=== PATIENT | female | born 1990 | race American Indian/Alaskan Native ===

== ENCOUNTER 2017-12-11 09:06 | Observation (INO) | payer BC ==
[2017-12-11] MEDS ORDERED: Sodium Chloride 0.9% 1,000 ML IV ONE ×2 (09:34→11:47)
--- NOTE | 2017-12-11 09:40 | C.PDOC ---
History Of Present Illness 27 y/o female presents to ED with intractable vomiting for 3 days. Patient states 3 days ago was seen at [facility] [place] and states "My labs were mixed up with someone else's because they said I was and I have not had sex for 1 year". Patient reports at [facility] [place] she was given IV fluids, Reglan and morphine but symptoms have not improved which prompted visit to ED today. Patient admits to smoking Marijuana regularly and denies fever, chills, back pain or any other complaints at this time. Time Seen by Provider: 12/11/17 09:07 Chief Complaint (Nursing): Abdominal Pain History Per: Patient History/Exam Limitations: no limitations Onset/Duration Of Symptoms: Days Current Symptoms Are (Timing): Still Present Associated Symptoms: Nausea, Vomiting Past Medical History Reviewed: Historical Data, Nursing Documentation, Vital Signs Vital Signs: Last Vital Signs Temp 99.0 F 12/11/17 15:28 Pulse 53 L 12/11/17 15:28 Resp 18 12/11/17 15:28 BP 110/66 12/11/17 15:28 Pulse Ox 98 12/11/17 15:28 - Medical History PMH: Asthma, Migraine Surgical History: No Surg Hx Family History: States: No Known Family Hx - Social History Hx Alcohol Use: No Hx Substance Use: Yes - Immunization History Hx Tetanus Toxoid Vaccination: No Hx Influenza Vaccination: No Hx Pneumococcal Vaccination: No Review Of Systems Constitutional: Negative for: Fever, Chills Gastrointestinal: Positive for: Vomiting, Abdominal Pain Genitourinary: Negative for: Dysuria, Vaginal Discharge, Vaginal Bleeding Musculoskeletal: Negative for: Back Pain Skin: Negative for: Rash Neurological: Negative for: Weakness, Numbness Physical Exam - Physical Exam Appears: Non-toxic, No Acute Distress, Other (Actively vomiting) Skin: Warm, Dry, No Rash Head: Atraumatic, Normacephalic Oral Mucosa: Moist Neck: Normal ROM, Supple Cardiovascular: Rhythm Regular Respiratory: Normal Breath Sounds, No Rales, No Rhonchi, No Wheezing Gastrointestinal/Abdominal: Soft, Tenderness (Suprapubic ), No Guarding, No Rebound Back: No CVA Tenderness Extremity: Normal ROM, Capillary Refill (<2 seconds) Neurological/Psych: Oriented x3 ED Course And Treatment - Laboratory Results Result Diagrams: 12/11/17 09:56 12/11/17 09:56 Lab Interpretation: Normal Urine POC: Negative O2 Sat by Pulse Oximetry: 98 (RA) Pulse Ox Interpretation: Normal Progress Note: IV fluids, Reglan, Beta HCG ordered,. Treated with toradol and additional IVF NSS. On re-evaluation continues to vomit, Treated with ativan 1 mg IV Reassessment Condition: Improved - Physician Consult Information Physician Contacted: Elba Membreno Outcome Of Conversation: admit Medical Decision Making Medical Decision Making: Case discussed with Dr Membreno who knows patient well and patoient has been worked up multiple times with normal findings Disposition Discussed With Dr.: Elba Membreno Doctor Will See Patient In The: Hospital Counseled Patient/Family Regarding: Studies Performed, Diagnosis - Disposition Disposition: HOSPITALIZED Disposition Time: 16:00 Condition: STABLE - Clinical Impression Clinical Impression: Intractable nausea and vomiting, Intractable vomiting - PA / MASTER GLAZIER / Resident Statement MD/DO has reviewed & agrees with the documentation as recorded. - Scribe Statement The provider has reviewed the documentation as recorded by the Slyibnaty Dawson All medical record entries made by the Tommie were at my direction and personally dictated by me. I have reviewed the chart and agree that the record accurately reflects my personal performance of the history, physical exam, medical decision making, and the department course for this patient. I have also personally directed, reviewed, and agree with the discharge instructions and disposition. Decision To Admit - Pt Status Changed To: Hospital Disposition Of: Observation - . Bed Request Type: Regular Patient Diagnosis: Intractable nausea and vomiting
[2017-12-11] MEDS ORDERED: Sodium Chloride 0.9% 1,000 ML ONE (09:42)
[2017-12-11 10:00] LABS: BASO % 0.3 % (0.0-2.0); EOS % 0.2 % (0.0-4.0); LYMPH # 0.6 K/uL (1.0-4.3); LYMPH % 16.1 % (20.0-40.0); MEAN CELL VOLUME 86.4 fL (81.0-99.0); MEAN CORPUSCULAR HEMOGLOBIN 29.3 pg (27.0-31.0); MEAN CORPUSCULAR HGB CONC 33.9 g/dL (33.0-37.0); MEAN PLATELET VOLUME 8.5 fL (7.2-11.7); MONO # 0.8 K/uL (0.0-0.8); MONO % 22.4 % (0.0-10.0); NEUT # 2.2 K/uL (1.8-7.0); NRBC % 0.1 % (0.0-2.0); RBC 4.75 Mil/uL (3.80-5.20); RED CELL DISTRIBUTION WIDTH 12.7 % (11.5-14.5)
[2017-12-11 10:02] LABS: HEMOGLOBIN 13.9 g/dL (11.0-16.0); PLATELET COUNT 177 K/uL (130-400); WHITE BLOOD COUNT 3.6 K/uL (4.8-10.8)
[2017-12-11 10:15] LABS: ALB/GLOB RATIO 1.2 (1.0-2.1); ALBUMIN 4.3 g/dL (3.5-5.0); CALCIUM 8.8 mg/dl (8.6-10.4); GFR AFRICAN-AMERICAN > 60; GFR NON-AFRICAN AMERICAN > 60; LIPASE 206 U/L (23-300)
[2017-12-11 10:17] LABS: SQUAMOUS EPITHIAL 1 /hpf (0-5); URINE BACTERIA RARE (<OCC); URINE BILIRUBIN NEGATIVE (NEGATIVE); URINE BLOOD 1+ (NEGATIVE); URINE CLARITY Clear (Clear); URINE COLOR Yellow (YELLOW); URINE GLUCOSE (UA) NORMAL (Normal); URINE LEUKOCYTE ESTERASE NEG Leu/uL (Negative); URINE NITRATE NEGATIVE (NEGATIVE); URINE PROTEIN 2+ mg/dL (NEGATIVE)
[2017-12-11 10:18] LABS: ALT/SGPT 41 U/L (9-52); AST/SGOT 55 U/L (14-36); BLOOD UREA NITROGEN 11 mg/dL (7-17)
[2017-12-11 10:32] LABS: LYMPHOCYTE 20 % (20-40); MONOCYTE 18 % (0-10); NEUTROPHIL 62 % (50-75); PLATELET ESTIMATE NORMAL (NORMAL); TOTAL CELLS COUNTED 100
[2017-12-11 10:33] LABS: OVALOCYTES SLIGHT
[2017-12-11] MEDS ORDERED: Potassium Chloride 20 mEq/15 ml LIQ UD PO STA (11:47)
[2017-12-11] MEDS ORDERED: Potassium Chloride 20 mEq ER Tab PO ONE (12:32)
[2017-12-11] MEDS ORDERED: Dextrose 5%-0.225% NS 1,000 ML IV ONE (17:29)
[2017-12-11] MEDS: Dextrose 5%/0.45% NS 1,000 ML IV SCH (17:32)
[2017-12-12] MEDS: Dextrose 5%/0.45% NS 1,000 ML IV SCH ×3 (00:47→21:54)
[2017-12-12] MEDS ORDERED: Albuterol 0.083% Inhal Sol (2.5 mg/3 mL) UD INH PRN (07:34)
--- NOTE | 2017-12-12 07:37 | CP.PCM.PN ---
Subjective - Date & Time of Evaluation Date of Evaluation: 12/12/17 Time of Evaluation: 07:00 - Subjective Subjective: PGY 2 medicine progress note for Dr. Membreno: Patient seen and examined at bedside this morning. She sates that she is constantly nauseous and vomiting about 12 times a day with spec of blood in the vomit. Patient is also complaining of 6/10 generalized abdominal pain and is requesting Dilaudid. Patient stated she was at [facility] on Saturday for this issue but left because she was upset they were giving her information about another patient and said she was . Patient has been admitted for the same complaints to other hospitals a few times in the last couple years. She admits to chills and some shortness of breath, but denies chest pain, palpations, headh aches, changes in vision, numbness/tingling. Her last BM was yesterday. Patient admits to recent marijuana use. She states she has been very stressed at home and at work recently. Objective - Vital Signs/Intake and Output Vital Signs (last 24 hours): Temp Pulse Resp BP Pulse Ox 97.6 F 71 20 104/69 99 12/12/17 00:00 12/12/17 00:00 12/12/17 00:00 12/12/17 00:00 12/12/17 03:30 Intake and Output: 12/12/17 12/12/17 06:59 18:59 Intake Total 800 Balance 800 - Medications Medications: Current Medications Hydromorphone HCl (Dilaudid) 1 mg IVP Q4H PRN PRN Reason: Pain, severe (8-10) Last Admin: 12/12/17 01:56 Dose: 1 mg Dextrose/Sodium Chloride (Dextrose 5%/0.45% Ns 1000 Ml) 1,000 mls @ 100 mls/hr IV .Q10H CLAUDIA Last Admin: 12/12/17 00:47 Dose: 100 mls/hr Ondansetron HCl (Zofran Inj) 4 mg IVP Q6 PRN PRN Reason: Nausea/Vomiting Pneumococcal Polyvalent Vaccine (Pneumovax 23 Vaccine) 0.5 ml IM .ONCE ONE Stop: 12/12/17 10:01 - Labs Labs: 12/11/17 09:56 12/11/17 09:56 - Constitutional Appears: Non-toxic, No Acute Distress - Head Exam Head Exam: ATRAUMATIC, NORMAL INSPECTION - Eye Exam Eye Exam: EOMI, PERRL Pupil Exam: NORMAL ACCOMODATION - ENT Exam ENT Exam: Mucous Membranes Moist - Respiratory Exam Respiratory Exam: Clear to Ausculation Bilateral, NORMAL BREATHING PATTERN. absent: Accessory Muscle Use, Decreased Breath Sounds, Rales, Wheezes, Respiratory Distress - Cardiovascular Exam Cardiovascular Exam: REGULAR RHYTHM, +S1, +S2 - GI/Abdominal Exam GI & Abdominal Exam: Soft, Tenderness, Normal Bowel Sounds. absent: Distended, Firm, Guarding - Extremities Exam Extremities Exam: Normal Inspection. absent: Calf Tenderness, Pedal Edema - Back Exam Back Exam: NORMAL INSPECTION. absent: CVA tenderness (L), CVA tenderness (R), paraspinal tenderness - Neurological Exam Neurological Exam: Alert, Awake, CN II-XII Intact, Normal Gait, Oriented x3 Neuro motor strength exam: Left Upper Extremity: 5, Right Upper Extremity: 5, Left Lower Extremity: 5, Right Lower Extremity: 5 - Psychiatric Exam Psychiatric exam: Normal Affect, Normal Mood - Skin Skin Exam: Dry, Intact, Normal Color, Warm Assessment and Plan - Assessment and Plan (Free Text) Assessment: Intractable Nausea and Vomiting clear liquids D5, 1/2 NS at 100cc/hour Reglan 5mg IVP Q6 claudia Carafate 1grm PO ACBD CLAUDIA Zofran prn N/V Dilaudid 0.5mg IVP Q4 prn pain BHCg negative Patient had been admitted many times in the past for this same complaint with negative workup Dr. Gillis consulted, help appreciated s/p endocsopy 12/12: LA grade B reflux esophagitis, small haitus hernia, acute gastritis (f/u biopsy) f/u am labs, lipase, amylase Hypokalemia K 3.4 kCL 20meq IVPB f/u am labs Asthma Patient wheezing today SOlumedrol given 125 mg IVP then will continue 40mg IVP BID Continue Advair (on symbicort at home) Albuterol treatments Q4 claudia Hx. Migraine Not complaining of headaches at this time Hematuria f/u repeat UA, urine culture if persistent then will need urine cytology Anxiety Patient to follow up outpatient with psychiatry/therapy Prophylactic Measures SCDs Protonix 40mg IVP daily liquid diet Jami Shepherd PGY [address] Membreno
[2017-12-12 07:58] LABS: LYMPH # 1.1 K/uL (1.0-4.3); MONO # 0.5 K/uL (0.0-0.8); NEUT # 1.6 K/uL (1.8-7.0); NRBC % 0.2 % (0.0-2.0); WHITE BLOOD COUNT 3.2 K/uL (4.8-10.8)
[2017-12-12 08:08] LABS: BASO % 0.3 % (0.0-2.0); EOS % 0.1 % (0.0-4.0); LYMPH % 34.4 % (20.0-40.0); MEAN CELL VOLUME 85.9 fL (81.0-99.0); MEAN CORPUSCULAR HEMOGLOBIN 30.4 pg (27.0-31.0); MEAN CORPUSCULAR HGB CONC 35.4 g/dL (33.0-37.0); MEAN PLATELET VOLUME 8.7 fL (7.2-11.7); MONO % 15.2 % (0.0-10.0); RBC 3.92 Mil/uL (3.80-5.20); RED CELL DISTRIBUTION WIDTH 12.4 % (11.5-14.5)
[2017-12-12 08:12] LABS: HEMOGLOBIN 11.9 g/dL (11.0-16.0)
[2017-12-12 08:39] LABS: ALBUMIN 2.9 g/dL (3.5-5.0); ALT/SGPT 44 U/L (9-52); AST/SGOT 44 U/L (14-36); BLOOD UREA NITROGEN 7 mg/dL (7-17); CALCIUM 7.8 mg/dl (8.6-10.4); GFR AFRICAN-AMERICAN > 60; GFR NON-AFRICAN AMERICAN > 60; MAGNESIUM 1.8 mg/dL (1.6-2.3)
[2017-12-12] MEDS ORDERED: Potassium Chloride 20 mEq ER Tab PO ONE (09:00)
[2017-12-12] MEDS ORDERED: Pneumococcal 23-Valent Vaccine IM ONE (10:00)
[2017-12-12] MEDS ORDERED: Propofol 10 mg/ml Inj (20 ML) ONE ×2 (11:47→11:57)
[2017-12-12] MEDS ORDERED: Lidocaine Hydrochloride 5 ML INJ ONE ×2 (11:47→12:07)
[2017-12-12] MEDS ORDERED: Lactated Ringer's 1,000 ML IV ONE (11:50)
[2017-12-12 13:00] VITALS: RESP 20
[2017-12-12 14:10] LABS: AMYLASE 80 U/L (30-110); LIPASE 190 U/L (23-300)
[2017-12-12 14:11] LABS: INR 1.1; PROTHROMBIN TIME 12.4 SECONDS (9.7-12.2)
[2017-12-12] MEDS: Albuterol 0.083% Inhal Sol (2.5 mg/3 mL) UD INH SCH ×2 (16:58→19:48)
--- NOTE | 2017-12-12 19:15 | US ---
EXAM: US Abdomen Complete EXAM DATE/TIME: Exam ordered 12/12/2017 12:42 PM CLINICAL HISTORY: 27 years old, female; Signs and symptoms; Nausea and vomiting; Additional info: N/v TECHNIQUE: Real-time ultrasound of the abdomen (complete) with image documentation. COMPARISON: No relevant prior studies available. FINDINGS: Liver: Liver measures 15.3 cm in craniocaudal span. There is normal blood flow direction in the main portal vein. No intrahepatic bile duct dilation. Gallbladder: Unremarkable. No gallstones. Common bile duct: Common bile duct measures 3 mm. No stones. No dilation. Pancreas: Unremarkable as visualized. Kidneys: The right kidney measures 10.4 x 4.4 x 5.3 cm. The left kidney measures 10.1 x 5.1 x 5.1 cm. No stones. No hydronephrosis. Spleen: The spleen measures 8.7 cm in craniocaudal span. Aorta: Unremarkable. No aneurysm. Inferior vena cava: Unremarkable. Free fluid: A trace amount of free fluid is noted in the hepato- cholecystic space. A trace amount of ascites is seen in the hepato- renal space. A trace amount of free fluid surrounds the spleen. No ascites is seen in the right lower quadrant or the left lower quadrant. IMPRESSION: 1. A trace amount of ascites is noted surrounding the gallbladder, spleen and in the hepatorenal space.
[2017-12-12] MEDS: Fluticasone-Salmeterol 250-50mcg Diskus INH SCH (19:48)
[2017-12-12 22:44] LABS: SQUAMOUS EPITHIAL 1 /hpf (0-5); URINE BILIRUBIN NEGATIVE (NEGATIVE); URINE BLOOD NEGATIVE (NEGATIVE); URINE CLARITY Clear (Clear); URINE COLOR Straw (YELLOW); URINE GLUCOSE (UA) 2+ mg/dL (Normal); URINE LEUKOCYTE ESTERASE NEG Leu/uL (Negative); URINE NITRATE NEGATIVE (NEGATIVE); URINE PROTEIN NEGATIVE (NEGATIVE); URINE UROBILINOGEN NORMAL mg/dL (0.2-1.0)
[2017-12-13] MEDS: Albuterol 0.083% Inhal Sol (2.5 mg/3 mL) UD INH SCH ×4 (03:20→12:16)
[2017-12-13] MEDS: Dextrose 5%/0.45% NS 1,000 ML IV SCH ×2 (06:06→08:24)
--- NOTE | 2017-12-13 07:34 | CP.PCM.PN ---
Subjective - Date & Time of Evaluation Date of Evaluation: 12/13/17 Time of Evaluation: 07:29 - Subjective Subjective: PGY-[address] Membreno's service: Pt seen and examined at bedside. Nursing reports no acute events overnight. Pt reports abdominal pain is greatly improved this AM. She admits intermittent nausea but was able to tolerate liquid breakfast and soft diet for lunch. She denies diarrhea, constipation. Objective - Vital Signs/Intake and Output Vital Signs (last 24 hours): Temp Pulse Resp BP Pulse Ox 98.7 F 69 20 105/67 100 12/13/17 00:00 12/13/17 00:00 12/13/17 00:00 12/13/17 00:00 12/13/17 00:00 Intake and Output: 12/13/17 12/13/17 06:59 18:59 Intake Total 1840 Balance 1840 - Medications Medications: Current Medications Albuterol Sulfate (Albuterol 0.083% Inhal Mayda (2.5 Mg/3 Ml) Ud) 2.5 mg INH RQ4 [facility] Last Admin: 12/13/17 03:20 Dose: Not Given Hydromorphone HCl (Dilaudid) 0.5 mg IVP Q4H PRN PRN Reason: Pain, severe (8-10) Last Admin: 12/13/17 02:38 Dose: 0.5 mg Dextrose/Sodium Chloride (Dextrose 5%/0.45% Ns 1000 Ml) 1,000 mls @ 100 mls/hr IV .Q10H [facility] Last Admin: 12/13/17 06:06 Dose: 100 mls/hr Methylprednisolone (Solu-Medrol) 40 mg IVP BID [facility] Metoclopramide HCl (Reglan) 5 mg IVP Q6 [facility] Last Admin: 12/13/17 06:07 Dose: Not Given Ondansetron HCl (Zofran Inj) 4 mg IVP Q6 PRN PRN Reason: Nausea/Vomiting Last Admin: 12/12/17 21:13 Dose: 4 mg Pantoprazole Sodium (Protonix Inj) 40 mg IVP DAILY [facility] Last Admin: 12/12/17 09:26 Dose: 40 mg Fluticasone/Salmeterol (Advair Diskus 250/50) 1 puff INH RQ12 [facility] Last Admin: 12/12/17 19:48 Dose: Not Given Sucralfate (Carafate Tab) 1 gm PO ACBD [facility] Last Admin: 12/12/17 16:59 Dose: 1 gm - Labs Labs: 12/12/17 07:42 12/12/17 07:42 PT 12.4 SECONDS (9.7-12.2) H 12/12/17 13:50 INR 1.1 12/12/17 13:50 APTT 29 SECONDS (21-34) 12/12/17 13:50 - Constitutional Appears: Non-toxic, No Acute Distress - Eye Exam Eye Exam: EOMI, Normal appearance. absent: Scleral icterus - ENT Exam ENT Exam: Mucous Membranes Moist - Neck Exam Neck Exam: Full ROM - Respiratory Exam Respiratory Exam: Clear to Ausculation Bilateral, NORMAL BREATHING PATTERN. absent: Rales, Rhonchi, Wheezes - Cardiovascular Exam Cardiovascular Exam: REGULAR RHYTHM, +S1, +S2 - GI/Abdominal Exam GI & Abdominal Exam: Soft, Normal Bowel Sounds. absent: Tenderness - Extremities Exam Extremities Exam: Normal Inspection. absent: Pedal Edema - Back Exam Back Exam: absent: CVA tenderness (L), CVA tenderness (R) - Neurological Exam Neurological Exam: Alert, Awake, Oriented x3 - Psychiatric Exam Psychiatric exam: Normal Affect, Normal Mood - Skin Skin Exam: Dry, Normal Color, Warm Assessment and Plan - Assessment and Plan (Free Text) Plan: Intractable Nausea and Vomiting Tolerating soft diet D5, 1/2 NS at 100cc/hour Reglan 5mg IVP Q6 claudia Carafate 1grm PO ACBD CLAUDIA Zofran prn N/V Dilaudid 0.5mg IVP Q4 prn pain BHCg negative Patient had been admitted many times in the past for this same complaint with negative workup Dr. Gillis consulted, help appreciated s/p endocsopy 12/12: LA grade B reflux esophagitis, small haitus hernia, acute gastritis (f/u biopsy) US Abdomen (12/12/17): Trace ascites around GB, spleen, hepatorenal space. Hypokalemia K 3.2 on am labs; repleted kCL 20meq IVPB + kdur 40 f/u am labs Asthma Patient wheezing today Solumedrol given 125 mg IVP then will continue 40mg IVP BID Continue Advair (on symbicort at home) Albuterol treatments Q4 claudia Hx. Migraine Not complaining of headaches at this time Hematuria resolved Anxiety Patient to follow up outpatient with psychiatry/therapy Prophylactic Measures SCDs Protonix 40mg IVP daily Soft diet Disposition: Pt tolerating diet. Will be discharged. Pt will follow up with Dr. Membreno this week. Jami Shepherd PGY [address] Membreno
[2017-12-13 07:51] VITALS: PULSE 64
[2017-12-13 08:29] LABS: BASO % 0.1 % (0.0-2.0); HEMOGLOBIN 12.9 g/dL (11.0-16.0); LYMPH % 23.3 % (20.0-40.0); MEAN CELL VOLUME 84.6 fL (81.0-99.0); MEAN CORPUSCULAR HEMOGLOBIN 29.9 pg (27.0-31.0); MEAN CORPUSCULAR HGB CONC 35.4 g/dL (33.0-37.0); MEAN PLATELET VOLUME 8.8 fL (7.2-11.7); MONO # 0.8 K/uL (0.0-0.8); MONO % 17.6 % (0.0-10.0); NEUT # 2.6 K/uL (1.8-7.0); NRBC % 0.2 % (0.0-2.0); RBC 4.32 Mil/uL (3.80-5.20); RED CELL DISTRIBUTION WIDTH 12.5 % (11.5-14.5); WHITE BLOOD COUNT 4.4 K/uL (4.8-10.8)
[2017-12-13 08:56] LABS: ALB/GLOB RATIO 1.2 (1.0-2.1); ALBUMIN 3.3 g/dL (3.5-5.0); ALT/SGPT 41 U/L (9-52); AST/SGOT 49 U/L (14-36); BLOOD UREA NITROGEN 4 mg/dL (7-17); CALCIUM 8.5 mg/dl (8.6-10.4); GFR AFRICAN-AMERICAN > 60; GFR NON-AFRICAN AMERICAN > 60; MAGNESIUM 1.6 mg/dL (1.6-2.3)
[2017-12-13 09:10] LABS: FERRITIN 67.3 ng/mL
[2017-12-13] MEDS: Fluticasone-Salmeterol 250-50mcg Diskus INH SCH (09:13)
[2017-12-13] MEDS ORDERED: MethylPREDNISolone 40 mg Vial IVP SCH (10:00)
--- NOTE | 2017-12-13 11:51 | PN ---
DATE: LOCATION: [facility], bed A. SUBJECTIVE: This is a 27-year-old female seen and examined in rounds with much less abdominal pain, tolerating liquid intake well. No hematemesis. No vomiting, but mild nausea and dyspepsia. Abdominal ultrasound report is seen. The entire chart is reviewed including, but not limited to most recent lab and radiology study results, current and previous medication list, current and previous medical events. Case discussed at length with the patient herself as well as staff on the floor, in the presence of the patient's mother. Today's lab showed normal CBC, but white blood cells is still low at 4.4 with low potassium 3.2 and low BUN 4, low creatinine of 0.6 with mildly elevated blood glucose level 108 but low calcium 8.5. AST slightly elevated to 49 with low total protein of 6.2, low albumin 3.3. PHYSICAL EXAMINATION: GENERAL: A 27-year-old female, appeared to be awake, alert, oriented. Complaining of intermittent periods of abdominal pain but less than before. VITAL SIGNS: The patient is afebrile with pulse of 66, respiratory rate 18 to 20, blood pressure 110/64. HEENT: Showed mildly dry, pale mucous membrane. Nonicteric sclerae. LUNGS: Clear. Breathing sounds are present bilaterally. HEART: Positive S1 and S2. ABDOMEN: Soft. Bowel sounds are present. No mass or organomegaly. No rebound tenderness or guarding. EXTREMITIES: Without edema, clubbing, or cyanosis. NEUROLOGIC: No reported new neurological deficits, sensory or motor. IMPRESSION: 1. Re-exacerbation of peptic ulcer disease with acute gastritis and distal esophagitis. 2. Anemia, most likely secondary to above. 3. Abnormal ultrasound of the abdomen and pelvis with mild amount of ascites. 4. Known history of migraine headache with bronchial asthma. SUGGESTIONS: 1. Agree with your plan. 2. Advance diet. 3. Follow up pathology report. Shivam Colvin MD
--- NOTE | 2017-12-13 14:16 | CON ---
DATE: 12/11/[address] Shivam Colvin to Dr. Elba Membreno. I was called for a GI consultation by the admitting medical team. Patient is seen and fully examined on 12/11/2017 as requested by the staff in the floor. The entire chart was reviewed including but not limited to most recent lab and radiology study results, current and the previous medication list, current and the previous medical events, allergy to medication list as well as all the available current and the previous medical records. Case discussed with the staff at length. HISTORY OF PRESENT ILLNESS: This is a 27-year-old female who was admitted to the hospital with severe crampy abdominal pain, persistent nausea and vomiting with dyspepsia for the last 3 to 4 days prior to her admission, but no reported active bleeding. No reported chest pain, palpitation, significant complaint of shortness of breath, chills or fever. PAST MEDICAL HISTORY: Including mainly but not limited to, 1. Bronchial asthma during her childhood. 2. Questionable peptic ulcer disease. 3. Patient also has a past medical history of migraine headache. FAMILY HISTORY: Unknown. SOCIAL HISTORY: Positive for marijuana, but no alcohol induced. CURRENT MEDICATION: Medication lists were reviewed. ALLERGY TO MEDICATION: UNCLEAR. LABORATORY DATA: After being admitted to the hospital, patient was found to have low white blood cells of 3.6, but normal hemoglobin and hematocrit with low potassium of 3.2, and low CO2 content of 21 most likely secondary to the results of nausea and vomiting. PHYSICAL EXAMINATION: GENERAL: A 27-year-old female, awake, alert, oriented. VITAL SIGNS: With low-grade temperature of 99.2, pulse of 58, respiratory rate 20 to 22, blood pressure 116/68. HEENT: Showed dry oral mucous membrane, nonicteric sclerae. LYMPH NODES: No lymphadenitis or lymphadenopathy. LUNGS: A few scattered mild crepitation with decreased air entry at bases. HEART: Positive S1 and S2. ABDOMEN: Soft with [id number] generalized tenderness, but mainly in the mid epigastric area. No mass or organomegaly. No rebound tenderness or guarding. GENITOURINARY: Rectal examination, patient refused. EXTREMITIES: Without significant edema, clubbing, or cyanosis. NEUROLOGY: No reported neurological deficits, sensory or motor. No focal deficits. IMPRESSION: 1. Re-exacerbation of peptic ulcer disease, to rule out gastric versus duodenal ulcer. 2. To rule out partial gastric outlet obstruction, less likely. 3. To rule out early stage of acute pancreatitis, could be viral in nature. SUGGESTION: 1. Agree with your plan. 2. Reglan IV. 3. Proton pump inhibitors IV. 4. Lipid profile. 5. Keep n.p.o. for now. 6. Abdominal ultrasound. 7. Endoscopic evaluation of the upper GI tract when the patient is more stable clinically. 8. Further recommendation to follow. Thank you for letting me to participate in your patient's case management. Shivam Colvin MD
[2017-12-13] MEDS ORDERED: Potassium Chloride 20 mEq ER Tab PO ONE (15:19)
[2017-12-13] MEDS ORDERED: SYMBICORT INH PRN (15:21)
[2017-12-13] MEDS ORDERED: Influenza Vaccine 60 mcg/0.5 mL SYR (4YR UP) IM ONE (16:15)
[2017-12-13 16:41] VITALS: BP 107/65; TEMP 97.2; O2SAT 97
== END 2017-12-13 17:19 | disposition home or self-care (01) ==
LOC: C.ER 09:06 → C.9E 13:08 → C.3T 20:59
PROVIDERS: ADMIT Internal Medicine Pulmonary Disease; ATTEND Internal Medicine Pulmonary Disease
DX: K27.9 Peptic ulcer, site unspecified, unspecified as acute or chronic, without hemorrhage or perforation (principal); K29.00 Acute gastritis without bleeding; E87.6 Hypokalemia; K21.0 Gastro-esophageal reflux disease with esophagitis; F41.9 Anxiety disorder, unspecified; D64.9 Anemia, unspecified; J45.909 Unspecified asthma, uncomplicated
CPT/HCPCS: 36415; 43239; 76700; 80053; 81001; 82150; 82728; 83690; 83735; 84100; 84702; 85025; 85044; 85610; 85730; 86703; 87086; 88305; 88342; 94640; 96361; 96365; 96375; 96376; 99285; C9113; G0378; J1170; J1885; J2060; J2405; J2765; J2920; J2930; J3480; J7040; J7042; J7120

== ENCOUNTER 2017-12-13 23:33 | Inpatient (IN) | payer BC ==
[2017-12-14] MEDS ORDERED: Sodium Chloride 0.9% 1,000 ML IV ONE (00:10)
[2017-12-14 00:26] LABS: BASO % 0.4 % (0.0-2.0); EOS % 0.2 % (0.0-4.0); HEMOGLOBIN 14.3 g/dL (11.0-16.0); LYMPH # 1.4 K/uL (1.0-4.3); MEAN CELL VOLUME 84.4 fL (81.0-99.0); MEAN CORPUSCULAR HEMOGLOBIN 30.2 pg (27.0-31.0); MEAN CORPUSCULAR HGB CONC 35.8 g/dL (33.0-37.0); MEAN PLATELET VOLUME 8.8 fL (7.2-11.7); MONO % 12.5 % (0.0-10.0); NEUT # 5.6 K/uL (1.8-7.0); NEUT % 69.9 % (50.0-75.0); RBC 4.73 Mil/uL (3.80-5.20); RED CELL DISTRIBUTION WIDTH 12.5 % (11.5-14.5)
[2017-12-14] MEDS ORDERED: Sodium Chloride 0.9% 1,000 ML ONE (00:36)
[2017-12-14 00:38] LABS: SQUAMOUS EPITHIAL 1 /hpf (0-5); URINE BACTERIA OCC (<OCC); URINE BILIRUBIN NEGATIVE (NEGATIVE); URINE BLOOD NEGATIVE (NEGATIVE); URINE CLARITY Clear (Clear); URINE COLOR Straw (YELLOW); URINE GLUCOSE (UA) NORMAL (Normal); URINE LEUKOCYTE ESTERASE NEG Leu/uL (Negative); URINE NITRATE NEGATIVE (NEGATIVE); URINE PROTEIN NEGATIVE (NEGATIVE); URINE UROBILINOGEN NORMAL mg/dL (0.2-1.0)
--- NOTE | 2017-12-14 01:02 | C.PDOC ---
Time Seen by Provider: 12/14/17 00:01 Chief Complaint (Nursing): Abdominal Pain Past Medical History Vital Signs: Last Vital Signs Temp 98.6 F 12/14/17 00:18 Pulse 94 H 12/14/17 00:18 Resp 20 12/14/17 00:18 BP 166/107 H 12/14/17 00:18 Pulse Ox 100 12/14/17 00:18 - Medical History PMH: Asthma, Migraine - Social History Hx Alcohol Use: No Hx Substance Use: Yes - Immunization History Hx Tetanus Toxoid Vaccination: No Hx Influenza Vaccination: No Hx Pneumococcal Vaccination: No ED Course And Treatment - Laboratory Results Result Diagrams: 12/14/17 00:24 O2 Sat by Pulse Oximetry: 100 Disposition - Disposition Forms: [employer] (Japanese)
--- NOTE | 2017-12-14 01:08 | C.PDOC ---
History Of Present Illness Patient is a 27 year old patient who presents to the ED with complaints of abdominal pain, nausea, vomiting, and headache. Patient is actively vomiting in ED and describes headache as "pressure". Patient was recently admitted and discharged today for similar symptoms. Patient requests to call PMDr. Temi Beauchamp. Time Seen by Provider: 12/14/17 00:01 Chief Complaint (Nursing): Abdominal Pain History Per: Patient History/Exam Limitations: no limitations Onset/Duration Of Symptoms: Hrs Current Symptoms Are (Timing): Still Present Location Of Pain/Discomfort: Diffuse Associated Symptoms: Nausea, Vomiting Past Medical History Reviewed: Historical Data, Nursing Documentation, Vital Signs Vital Signs: Last Vital Signs Temp 98.6 F 12/14/17 00:18 Pulse 94 H 12/14/17 00:18 Resp 20 12/14/17 00:18 BP 166/107 H 12/14/17 00:18 Pulse Ox 100 12/14/17 01:23 - Medical History PMH: Asthma, Migraine Surgical History: No Surg Hx Family History: States: No Known Family Hx - Social History Hx Tobacco Use: Yes (light smoker, <10 cigarettes a day) Hx Alcohol Use: No Hx Substance Use: Yes - Immunization History Hx Tetanus Toxoid Vaccination: No Hx Influenza Vaccination: No Hx Pneumococcal Vaccination: No Review Of Systems Constitutional: Negative for: Fever Cardiovascular: Negative for: Palpitations Respiratory: Negative for: Cough, Shortness of Breath Gastrointestinal: Positive for: Nausea, Vomiting, Abdominal Pain Genitourinary: Negative for: Dysuria Musculoskeletal: Negative for: Neck Pain Skin: Negative for: Rash Neurological: Positive for: Headache Physical Exam - Physical Exam Appears: Non-toxic, No Acute Distress, Other (uncomfortable, vomiting) Skin: Warm, Dry, No Diaphoretic, No Pale Head: Atraumatic, Normacephalic Eye(s): bilateral: Normal Inspection, EOMI Nose: Normal Oral Mucosa: Moist Neck: Normal ROM, No Midline Cervical Tenderness, No Paracervical Tenderness Chest: Symmetrical Cardiovascular: Rhythm Regular, No Murmur Respiratory: Normal Breath Sounds, No Rales, No Rhonchi, No Wheezing Gastrointestinal/Abdominal: Bowel Sounds, Soft, Tenderness (diffusely tender with light palpation), No Distention, No Guarding Back: Normal Inspection, No CVA Tenderness, No Vertebral Tenderness, No Paraspinal Tenderness Extremity: Bilateral: Atraumatic, Normal Color And Temperature, Normal ROM Neurological/Psych: Oriented x3, Normal Speech ED Course And Treatment - Laboratory Results Result Diagrams: 12/14/17 00:24 12/14/17 00:24 O2 Sat by Pulse Oximetry: 100 - Physician Consult Information Time Consulting Physician Contacted: 01:10 Physician Contacted: Elba Membreno Outcome Of Conversation: Agrees upon admission of patient. Medical Decision Making Medical Decision Making: Impression: abdominal pain and vomiting. Patient was discharged earlier today after 2 day admission for intractable vomiting. Plan: * Blood work * UA * Pepcid * Toradol * Reglan * IV NS Progress: Labs reviewed, no leukocytosis, hypokalemia. Patient has no more vomiting after receiving antiemetics, but continues to complain of pain and asking to call her PCP Dr Membreno Contact Dr Membreno who agrees and accepts patient for admission and gives verbal orders over phone. Disposition Counseled Patient/Family Regarding: Diagnosis, Need For Followup - Disposition Disposition: HOSPITALIZED Disposition Time: 01:10 Condition: STABLE - POA Present On Arrival: None - Clinical Impression Clinical Impression: Intractable nausea and vomiting, Abdominal pain - Scribe Statement The provider has reviewed the documentation as recorded by the Scribe Kelly Cramer All medical record entries made by the Scribe were at my direction and personally dictated by me. I have reviewed the chart and agree that the record accurately reflects my personal performance of the history, physical exam, medical decision making, and the department course for this patient. I have also personally directed, reviewed, and agree with the discharge instructions and disposition. Decision To Admit - Pt Status Changed To: Hospital Disposition Of: Inpatient - Admit Certification Admit to Inpatient:: After my assessment, the patient will require hospitalization for at least two midnights. This is because of the severity of symptoms shown, intensity of services needed, and/or the medical risk in this patient being treated as an outpatient. - InPatient: Physician Admission Certification:: Patient with abdominal pain, intractable vomiting - . Bed Request Type: Regular Admitting Physician: Elba Membreno Patient Diagnosis: Intractable nausea and vomiting, Abdominal pain
[2017-12-14 01:09] LABS: BARBITURATES, UR NEGATIVE (NEGATIVE); BENZODIAZEPINES, UR NEGATIVE (NEGATIVE); PHENCYCLIDINE, UR NEGATIVE (NEGATIVE)
[2017-12-14 01:22] LABS: ALB/GLOB RATIO 1.3 (1.0-2.1); ALBUMIN 4.6 g/dL (3.5-5.0); ALT/SGPT 62 U/L (9-52); AST/SGOT 69 U/L (14-36); BLOOD UREA NITROGEN 7 mg/dL (7-17); CALCIUM 9.8 mg/dl (8.6-10.4); GFR AFRICAN-AMERICAN > 60; GFR NON-AFRICAN AMERICAN > 60; LIPASE 325 U/L (23-300)
[2017-12-14] MEDS: HYDROmorphone 1 mg/ml ISec IVP PRN ×3 (01:30→13:48)
[2017-12-14 01:37] LABS: OPIATES, UR POSITIVE (NEGATIVE)
[2017-12-14 05:01] LABS: BASO % 0.1 % (0.0-2.0); HEMOGLOBIN 13.1 g/dL (11.0-16.0); LYMPH # 1.7 K/uL (1.0-4.3); LYMPH % 22.4 % (20.0-40.0); MEAN CORPUSCULAR HEMOGLOBIN 29.8 pg (27.0-31.0); MEAN CORPUSCULAR HGB CONC 35.1 g/dL (33.0-37.0); MEAN PLATELET VOLUME 8.8 fL (7.2-11.7); MONO # 1.2 K/uL (0.0-0.8); MONO % 15.1 % (0.0-10.0); NEUT # 4.8 K/uL (1.8-7.0); NEUT % 62.4 % (50.0-75.0); NRBC % 0.1 % (0.0-2.0); RBC 4.38 Mil/uL (3.80-5.20); RED CELL DISTRIBUTION WIDTH 12.7 % (11.5-14.5); WHITE BLOOD COUNT 7.7 K/uL (4.8-10.8)
[2017-12-14 05:12] LABS: ALB/GLOB RATIO 1.2 (1.0-2.1); ALBUMIN 3.5 g/dL (3.5-5.0); ALT/SGPT 52 U/L (9-52); AST/SGOT 53 U/L (14-36); BLOOD UREA NITROGEN 6 mg/dL (7-17); CALCIUM 8.6 mg/dl (8.6-10.4); GFR AFRICAN-AMERICAN > 60; GFR NON-AFRICAN AMERICAN > 60
[2017-12-14] MEDS: Potassium Ch 20mEq in D5W 1,000 ML IV SCH ×3 (07:15→21:15)
[2017-12-15] MEDS: Potassium Ch 20mEq in D5W 1,000 ML IV SCH ×3 (05:38→19:04)
[2017-12-15 08:38] LABS: ALB/GLOB RATIO 1.1 (1.0-2.1); ALBUMIN 3.3 g/dL (3.5-5.0); ALT/SGPT 42 U/L (9-52); AST/SGOT 39 U/L (14-36); BLOOD UREA NITROGEN 5 mg/dL (7-17); CALCIUM 8.3 mg/dl (8.6-10.4); GFR AFRICAN-AMERICAN > 60; GFR NON-AFRICAN AMERICAN > 60
[2017-12-15] MEDS ORDERED: Potassium Chloride 20 mEq ER Tab PO ONE (14:45)
[2017-12-15 23:23] VITALS: BP 101/70; PULSE 68; RESP 20; TEMP 98.2; O2SAT 100
[2017-12-16] MEDS: Potassium Ch 20mEq in D5W 1,000 ML IV SCH (03:46)
[2017-12-16 08:54] LABS: ALB/GLOB RATIO 1.1 (1.0-2.1); ALBUMIN 3.2 g/dL (3.5-5.0); ALT/SGPT 37 U/L (9-52); AST/SGOT 29 U/L (14-36); BLOOD UREA NITROGEN 4 mg/dL (7-17); CALCIUM 8.3 mg/dl (8.6-10.4); GFR AFRICAN-AMERICAN > 60; GFR NON-AFRICAN AMERICAN > 60; LIPASE 234 U/L (23-300); MAGNESIUM 1.8 mg/dL (1.6-2.3)
--- NOTE | 2017-12-16 09:27 | HP ---
HISTORY OF PRESENT ILLNESS: This is a 27-year-old female, admitted to hospital with nausea, vomiting and weakness. The patient came to the ER, advised admission. Patient was recently discharged from the hospital with same issue. Issue of smoking marijuana anxiety. PHYSICAL EXAMINATION: GENERAL: The patient is awake, alert, oriented. VITAL SIGNS: Temperature 98, pulse 90. HEENT: Within normal limits. NECK: Supple. CHEST: Symmetrical. HEART: Regular. ABDOMEN: Soft. EXTREMITIES: No edema. IMPRESSION: Patient suffers from abdominal pain, gastritis. PLAN: Patient placed on bedrest, IV fluids, n.p.o. Elba Membreno MD
[2017-12-16] MEDS ORDERED: Pneumococcal 23-Valent Vaccine IM ONE (10:00)
[2017-12-16] MEDS ORDERED: Influenza Vaccine 60 mcg/0.5 mL SYR (4YR UP) IM ONE (10:00)
--- NOTE | 2017-12-16 11:33 | CP.PCM.PN ---
Subjective - Date & Time of Evaluation Date of Evaluation: 12/16/17 Time of Evaluation: 07:00 - Subjective Subjective: PGY-[address] Membreno's service: Patient was seen and examined at bedside. Nursing reports no acute events overnight. Denies abdominal pain. She is tolerating a liquid diet. She denies diarrhea, constipation, chest pain, palpitations. Objective - Vital Signs/Intake and Output Vital Signs (last 24 hours): Temp Pulse Resp BP Pulse Ox 98.2 F 68 20 101/70 100 12/15/17 23:19 12/15/17 23:19 12/15/17 23:19 12/15/17 23:19 12/15/17 23:19 - Medications Medications: Current Medications Hydromorphone HCl (Dilaudid) 1 mg IVP Q4H PRN PRN Reason: Pain, severe (8-10) Last Admin: 12/16/17 05:44 Dose: 1 mg Potassium Chloride/Dextrose (Potassium Chl 20 Meq In D5w) 1,000 mls @ 100 mls/ hr IV .Q10H DIANA Last Admin: 12/16/17 03:46 Dose: 100 mls/hr Ondansetron HCl (Zofran Inj) 4 mg IVP Q6H DIANA Last Admin: 12/16/17 06:27 Dose: 4 mg Pantoprazole Sodium (Protonix Inj) 40 mg IVP DAILY [facility] Last Admin: 12/16/17 11:18 Dose: 40 mg - Labs Labs: 12/14/17 04:51 12/16/17 08:05 - Constitutional Appears: Non-toxic, No Acute Distress - Head Exam Head Exam: ATRAUMATIC, NORMAL INSPECTION - Eye Exam Eye Exam: EOMI, PERRL Pupil Exam: NORMAL ACCOMODATION - ENT Exam ENT Exam: Mucous Membranes Moist - Respiratory Exam Respiratory Exam: Clear to Ausculation Bilateral, NORMAL BREATHING PATTERN. absent: Accessory Muscle Use, Rales, Wheezes, Respiratory Distress - Cardiovascular Exam Cardiovascular Exam: REGULAR RHYTHM, +S1, +S2 - GI/Abdominal Exam GI & Abdominal Exam: Soft, Normal Bowel Sounds. absent: Distended, Firm, Guarding, Tenderness - Extremities Exam Extremities Exam: Normal Inspection - Back Exam Back Exam: NORMAL INSPECTION. absent: CVA tenderness (L), CVA tenderness (R), paraspinal tenderness - Neurological Exam Neurological Exam: Alert, Awake, CN II-XII Intact, Oriented x3 Neuro motor strength exam: Left Upper Extremity: 5, Right Upper Extremity: 5, Left Lower Extremity: 5, Right Lower Extremity: 5 - Psychiatric Exam Psychiatric exam: Anxious, Normal Affect, Normal Mood - Skin Skin Exam: Normal Color, Warm Assessment and Plan - Assessment and Plan (Free Text) Assessment: Intractable Nausea and Vomiting Tolerating liquid diet D5, 1/2 NS at 100cc/hour Carafate 1grm PO ACBD DIANA Zofran prn N/V Dilaudid 0.5mg IVP Q4 prn pain BHCg negative Patient had been admitted many times in the past for this same complaint with negative workup s/p endocsopy 12/12: LA grade B reflux esophagitis, small haitus hernia, acute gastritis (f/u biopsy) US Abdomen (12/12/17): Trace ascites around GB, spleen, hepatorenal space. Asthma Controlled Continue Advair (on symbicort at home) Hx. Migraine Not complaining of headaches at this time Anxiety Patient to follow up outpatient with psychiatry/therapy Prophylactic Measures SCDs Protonix 40mg IVP daily Soft diet Patient is stable for discharge home today. Patient is to follow up with her primary care doctor within 1-2 weeks of discharge. Patient is to continue her home medications. She is also to take Zofran 4mg one by mouth every 6 hours as need for nausea/vomiting (disp#20, no refills). The prescription was sent to the patient's preferred pharmacy([facility]). All instructions explained to the patient and she agrees. A note was given to the patient excusing her for work. All management per Dr. Membreno
== END 2017-12-16 14:15 | disposition home or self-care (01) | DRG 897 ==
LOC: C.ER 23:33 → C.9E 12-14 01:14 → C.5S 12-14 17:36
PROVIDERS: ADMIT Internal Medicine Pulmonary Disease; ATTEND Internal Medicine Pulmonary Disease
DX: F12.980 Cannabis use, unspecified with anxiety disorder (principal); R18.8 Other ascites; F41.9 Anxiety disorder, unspecified; J45.909 Unspecified asthma, uncomplicated; K29.70 Gastritis, unspecified, without bleeding; Z87.891 Personal history of nicotine dependence